=== PATIENT | male | born 1975 | race African-American/Black ===

== ENCOUNTER 2020-07-07 08:28 | Emergency (ER) | payer SELFPAY ==
[~2020-07-07] VITALS: Ht 170.2 cm; Wt 75.0 kg
[2020-07-07] MEDS ORDERED: MOTRIN400 MG PO (09:12)
[2020-07-07] MEDS ORDERED: CYCLOBENZAPR5 MG PO (09:12)
[2020-07-07 09:35] VITALS: BP 148/88
== END 2020-07-07 10:02 | disposition home or self-care (01) | DRG 552 ==
LOC: ED 08:28
DX: M54.5 Low back pain (principal); F17.200 Nicotine dependence, unspecified, uncomplicated

== ENCOUNTER 2021-05-04 11:41 | Emergency (ER) | payer SELFPAY ==
[~2021-05-04] VITALS: Ht 170.2 cm; Wt 88.6 kg
[~2021-05-04 11:41] MED LIST: CYCLOBENZAPR5 MG PO; MOTRIN400 MG PO
[2021-05-04] MEDS ORDERED: GENTAK0.32 OU (13:42)
[2021-05-04] MEDS ORDERED: AMLODIPINE BESYL5 MG PO (13:42)
[2021-05-04 14:44] VITALS: BP 188/144
== END 2021-05-04 14:50 | disposition left against medical advice (07) | DRG 918 ==
LOC: ED 11:41
DX: T54.91XA Toxic effect of unspecified corrosive substance, accidental (unintentional), initial encounter (principal); H10.213 Acute toxic conjunctivitis, bilateral; I10 Essential (primary) hypertension; E78.5 Hyperlipidemia, unspecified; F17.210 Nicotine dependence, cigarettes, uncomplicated; Y92.009 Unspecified place in unspecified non-institutional (private) residence as the place of occurrence of the external cause; Z91.19 Patient's noncompliance with other medical treatment and regimen